=== PATIENT | female | born 1985 | race Two or more races ===

== ENCOUNTER 2019-01-23 23:09 | Emergency (ER) | payer MEDICAID ==
[~2019-01-23] VITALS: Ht 170.2 cm; Wt 66.7 kg
[2019-01-23 23:19] VITALS: Ht 170.2 cm; Wt 66.7 kg
[2019-01-24 01:04] LABS: BASOPHIL % 0.2 % (0-2); PLATELET COUNT 228 x10^3mcL (130-400); RED CELL DISTRIBUTION WIDTH 13.8 % (11.5-14.5)
[2019-01-24 01:21] LABS: CALCIUM 9.7 mg/dL (8.5-10.1); CARBON DIOXIDE 29.9 mmol/L (21-32); CHLORIDE SERUM 100 mmol/L (98-107); CREATININE SERUM 0.6 mg/dL (0.6-1.0); GFR1 > 60 mL/min; GLUCOSE SERUM 111 mg/dL (74-106); POTASSIUM SERUM 4.1 mmol/L (3.5-5.1); SODIUM SERUM 139 mmol/L (136-145)
[2019-01-24 01:35] LABS: FREE T4 0.99 ng/dL (0.76-1.46)
[2019-01-24 02:25] LABS: microscopic required? YES; urine erythrocyte TRACE (NEGATIVE)
[2019-01-24 03:34] VITALS: BP 128/83
== END 2019-01-24 03:30 | disposition home or self-care (01) ==
LOC: ED 23:09
PROVIDERS: Emergency Medicine
DX: R42 Dizziness and giddiness (principal); R11.10 Vomiting, unspecified; Z88.2 Allergy status to sulfonamides; Z88.1 Allergy status to other antibiotic agents
CPT/HCPCS: 84439; J2405; J7030; J8597